=== PATIENT | male | born 1985 | race Caucasian/White ===

== ENCOUNTER 2018-05-30 09:22 | Inpatient (IN) | payer BC, SELFPAY ==
[2018-05-30] MEDS ORDERED: Propofol 1,000 MG/100 ML VIAL IV ONE (09:34)
[2018-05-30 09:38] LABS: #Basophils 0.1 thou/uL (0.0-0.2); #Eosinphils 0.1 thou/uL (0.0-0.7); #Lymphocytes 0.8 thou/uL (1.20-3.40); #Monocytes 0.3 thou/uL (0.11-0.59); #Neutrophils 5.3 thou/uL (1.40-6.50); %Basophils 0.9 % (0.0-1.0); %Eosinophils 0.9 % (0.0-10.0); %Lymphocytes 11.9 % (21.0-51.0); %Monocytes 5.3 % (0.0-10.0); Hemoglobin 14.5 g/dL (14.0-18.0); Mean Corpuscular HGB CONC 33.8 g/dL (32.0-36.0); Mean Corpuscular Hemoglobin 30.9 pg (27.0-31.0); Mean Corpuscular Volume 91.3 fL (78.0-98.0); Mean Platelet Volume 7.2 fL (7.4-10.4); Platelet Count 297 thou/uL (130-400); RBC Distribution Width 11.5 % (11.5-14.5); White Blood Cell (WBC) Count 6.6 thou/uL (4.8-10.8)
[2018-05-30] MEDS ORDERED: KETAMINE 100 MG/ML (5ML VIAL) ONE (09:46)
[2018-05-30 09:53] LABS: INR-International Normal Ratio 1.1; PTT 26.9 SEC (22.9-36.1); Prothrombin Time 13.8 SEC (12.0-14.7)
[2018-05-30] MEDS ORDERED: Ondansetron ODT 4 MG TAB PO PRN (09:53)
[2018-05-30] MEDS ORDERED: Ondansetron PF 4 MG/2 ML Vial IVP PRN (09:53)
[2018-05-30] MEDS ORDERED: Dextrose 50% Abboject 50 ML SYRINGE SLOW IVP PRN (09:53)
[2018-05-30] MEDS ORDERED: Dextrose 5% in Water 1,000 ML IV PRN (09:53)
[2018-05-30 09:56] LABS: Bilirubin Small (Negative); Blood, Urine Negative (Negative); Clarity CLOUDY (Clear); Glucose, Urine (Dipstick) Negative (Negative); Leukocyte Negative (Negative); Nitrite Negative (Negative); Protein, Urine (Dipstick) 30 mg/dL (Neg-Trace); Specific Gravity, Urine 1.026 (1.002-1.036)
[2018-05-30 09:58] LABS: Bacteria/HPF Rare-Few HPF (None Seen); RBC/HPF 0-3 HPF (0-3); Squamous Epithelial None Seen HPF (0-3); WBC/HPF 21-50 HPF (0-3)
[2018-05-30 09:59] LABS: Pathc Cast-AUWi Flag 2.61 (0-2.49); Sperm-AUWi Flag 831.2 (0-9.9)
[2018-05-30] MEDS ORDERED: Ventilator Sedation Protocol 1 EACH FS SCH (10:00)
[2018-05-30 10:03] LABS: Medtox Reader # READER 1
[2018-05-30 10:03] LABS: ALT (SGPT) 21 U/L (8-55); AST (SGOT) 30 U/L (5-34); Albumin 3.8 g/dL (3.5-5.0); Alkaline Phosphatase 49 U/L (40-150); Anion Gap 15 mmol/L (10-20); BUN (Urea Nitrogen) 10 mg/dL (8.9-20.6); Bilirubin, Total 1.3 mg/dL (0.2-1.2); Calc. Creatinine Clearance 0 mL/min (70-130); Calcium 8.9 mg/dL (7.8-10.44); Carbon Dioxide 23 mmol/L (22-29); Chloride 106 mmol/L (98-107); Estimated GFR-MDRD Greater than 90; Globulin 2.8 g/dL (2.4-3.5); Glucose 96 mg/dL (70-105); Lipase 5 U/L (8-78); Potassium 3.5 mmol/L (3.5-5.1); Protein, Total 6.6 g/dL (6.0-8.3); Sodium 140 mmol/L (136-145)
[2018-05-30 10:04] LABS: Amphetamine Detected (NotDetected); Barbiturates Screen Not Detected (NotDetected); Benzodiazepine Screen Detected (NotDetected); Cocaine Metabolite Screen Not Detected (NotDetected); Medtox Control Line Valid? VALID (VALID); Methadone Not Detected (NotDetected); Methamphetamine Detected (NotDetected); Opiate Screen Not Detected (NotDetected); Oxycodone Screen Not Detected (NotDetected); Phencyclidine (PCP) Not Detected (NotDetected); THC/Cannabinoid Screen Not Detected (NotDetected); Tricyclic Screen Not Detected (NotDetected)
[2018-05-30 10:09] LABS: Acetaminophen Less than 6.0 mcg/mL (10.0-30.0); Alcohol Less than 10 mg/dL (Less than 10); Salicylate Less than 8.0 mg/dL (15.0-30.0)
[2018-05-30 10:09] LABS: Hyaline Casts/LPF 0-3 HYALINE CAST LPF (0-3 Hyaline); Other Casts/LPF None Seen LPF (0-3 Hyaline); Sperm/HPF 4+ HPF (None Seen)
[2018-05-30 10:30] VITALS: BMI 20.9
[2018-05-30 11:00] LABS: Actual Bicarbonate (HCO3a) 24.4 mEq/L (22-28); Base Excess (BEa) -0.4 mEq/L (-2.0 to +3.0); CO2 Tension 40.7 mmHg (35.0-45.0); Calcium, Ionized 1.16 mmol/L (1.12-1.30); Carboxyhemoglobin (COHb) 1.6 gm% (0.0-3.0); Hemoglobin (Hb) 15.1 g/dL (14.0-18.0); O2 Tension (PaO2) 134.2 mmHg (80.0-100.0); Potassium - ABG Lab 3.61 mmol/L (3.70-5.30)
[2018-05-30] MEDS: Sodium Chloride 0.9% 1,000 ML IV SCH ×2 (11:00→17:56)
[2018-05-30 11:02] LABS: ALV-art Gradient 64.475 (0-20); Puncture Site RR
[2018-05-30] MEDS ORDERED: ISOVUE-370 76%-LOCM 1 ML ONE (11:10)
--- NOTE | 2018-05-30 11:25 | RAD ---
CHEST ONE VIEW: History: Chest injury following trauma. FINDINGS: Single AP supine chest demonstrates NG tube extending into the right lower lobe bronchus. Endotrachea l tube is in satisfactory location. Monitor leads overlie the chest. No evidence for pneumothorax or other acute intrathoracic disease. IMPRESSION: NG tube extending into the right lower lobe bronchus. Dr. Figueroa in the Emergency Department was con tacted at 9:45 a.m. and indicated that the NG tube had been removed. Endotracheal tube is satisfactor y location. No acute intrathoracic disease. Code CR POS: [facility]
--- NOTE | 2018-05-30 11:28 | CT ---
CT ANGIOGRAM NECK WITH 3D RENDERING: History: Neck injury following attempted hanging. FINDINGS: Visualized aortic arch and great vessels are unremarkable. Right and left vertebral arteries and righ t and left common, internal, and external carotid arteries appear unremarkable. No evidence for injur y or dissection. No evidence for contrast extravasation. No evidence for significant hematoma or othe r mass or abnormal fluid collection within the neck. Endotracheal tube in position. Minimal fluid in the nasopharynx. IMPRESSION: Unremarkable neck CT angiogram. Findings were discussed with Dr. Graham concerning the brain CT, cervical spine CT, and CT angio neck at 10:00 a.m. Code CR POS: [facility]
--- NOTE | 2018-05-30 11:28 | CT ---
NECK CT WITHOUT IV CONTRAST: HISTORY: Level I trauma, cervical injury following attempted hanging. FINDINGS: Endotracheal tube in position. Minimal fluid in the posterior nasal pharynx. No evidence for acute fracture or dislocation or significant malalignment. IMPRESSION: Unremarkable cervical spine CT. No fracture or dislocation. POS: [facility]
--- NOTE | 2018-05-30 11:29 | CT ---
BRAIN CT WITHOUT IV CONTRAST: Date: 05/30/18 HISTORY: Attempted hanging. FINDINGS: No focal mass or midline shift. No intra or extra-axial hemorrhage. There is some fluid in the retrop harynx. Endotracheal tube is seen in place. Minimal sinus mucosal changes. IMPRESSION: No acute intracranial process. No mass or bleed. Sinus mucosal changes. Fluid within the retropharynx . POS: [facility]
[2018-05-30] MEDS ORDERED: Propofol BOLUS 1,000 MG/100 ML VIAL IV PRN (12:11)
[2018-05-30] MEDS ORDERED: Fentanyl BOLUS 250 ML IVPB PRN (12:11)
[2018-05-30] MEDS ORDERED: DISCONTINUE PREVIOUS NARCOTIC PAIN MEDICATIONS AND BENZODIAZEPINES FS SCH (12:11)
[2018-05-30] MEDS ORDERED: fentaNYL Citrate/PF 2,000 MCG in Sodium Chloride 0.9% 60 ML IV SCH (12:11)
[2018-05-30] MEDS ORDERED: Morphine 2 MG/ML SYRINGE SLOW IVP PRN (12:11)
[2018-05-30] MEDS ORDERED: Lorazepam 2 MG/ML VIAL SLOW IVP PRN (12:11)
--- NOTE | 2018-05-30 12:14 | HP ---
HISTORY OF PRESENT ILLNESS: Mr. Farmer is a 33-year-old man, who is status post alleged attempted suicide by hanging on a tree. The patient was found hanging on a tree approximately 3 feet off the ground within 1 hour of him verbalizing suicidal ideation to family members. The patient was cut down from the tree and was found in agonal respiration. CPR was initiated by family member and 911 was activated. Responded EMS found the patient with pulse, spontaneously breathing, and profoundly agitated. The patient was given ketamine and placed on 100% non-rebreather mask. He was immobilized on a spine board. Cervical spine was immobilized in a C-collar. The patient was transported [facility] to [facility]. He arrived within 1 hour of the incident. Although his initial [place] Coma Scale was reported at 8, his [place] coma Scale upon arrival here was noted at E1, M3, and V1. The patient was electively intubated to protect airway and to facilitate timely workup. PAST MEDICAL HISTORY: Unknown. PAST SURGICAL HISTORY: Unknown. SOCIAL HISTORY: Unknown. CURRENT MEDICATIONS: Unknown. ALLERGIES: UNKNOWN. FAMILY HISTORY: Unknown. REVIEW OF SYSTEMS: Could not be obtained as the patient is in deep coma. PHYSICAL EXAMINATION: VITAL SIGNS: Initial vital signs include blood pressure 95/73, pulse 113, respiratory rate is 18, oxygen saturation 100% on 100% non-rebreather mask. HEENT: Reveals a 2 cm laceration in the occiput with underlying cephalohematoma, no active bleeding noted. Pupils are equally round and sluggishly reactive at 4 mm bilaterally. Midface is stable. No gross deformities or step-offs present. NECK: Supple. No palpable lymphadenopathy or thyromegaly present. Trachea is midline. The patient has no carotid bruit present. There is no hematoma of the neck present. There is no subcutaneous emphysema of the neck is present. Cervical spine was maintained in neutral position and remains in a C-collar. CHEST: Chest wall stable with no gross deformities or step-offs present. HEART: Reveals regular rate with sinus tachycardia. No murmurs or gallops auscultated. LUNGS: Clear to auscultation bilaterally. Breathing regular, nonlabored. ABDOMEN: Soft, nontender, and nondistended. Liver and spleen nonpalpable below costal margin. EXTREMITIES: Reveal 2+ radial and pedal pulses bilaterally. No ankle edema is present. NEUROLOGIC: Reveals no focal deficits present, although patient is in coma. PERTINENT LABORATORY FINDINGS: Include a CBC with 6600 white blood cells, hemoglobin 14.5, hematocrit 42.9, and platelet count 297,000. PTT and INR normal at 26.9 seconds and 1.1 respectively. Metabolic profile; sodium is 139, potassium is 3.6, chloride is 104, bicarb is 23, BUN is 10, creatinine is 0.86, glucose is 96, AST 30, ALT 21. Serum lipase is 5. Chest x-ray reveals no acute intrathoracic pathology. CT scan of the brain is unremarkable for any acute intracranial pathology. CT exam of the cervical spine reveals no fractures or dislocation present. CT angiography of the neck reveals no vascular injuries. IMPRESSION: 1. Status post alleged attempted suicide by hanging. 2. Status post hypoxic cardiac arrest. 3. Probable hypoxic encephalopathy. 4. Acute posttraumatic respiratory failure. PLAN: 1. Continue with ventilator support and wean vent as neurological and hemodynamic examination dictates. 2. Initiate physical and occupational therapy. 3. Initiate gastritis and VTE prophylaxis. Above findings and plan will be communicated to the family once they arrive. Total critical care time is 92 minutes. Job ID: [id number]
[2018-05-30 13:34] LABS: Lactic Acid 2.1 mmol/L (0.5-2.2)
[2018-05-30] MEDS: Propofol 1,000 MG/100 ML VIAL IV PRN (16:38)
[2018-05-31] MEDS: Propofol 1,000 MG/100 ML VIAL IV PRN ×2 (00:10→05:37)
[2018-05-31] MEDS: Sodium Chloride 0.9% 1,000 ML IV SCH (03:48)
[2018-05-31 07:46] LABS: #Basophils 0.1 thou/uL (0.0-0.2); #Lymphocytes 0.9 thou/uL (1.20-3.40); #Monocytes 0.7 thou/uL (0.11-0.59); #Neutrophils 10.6 thou/uL (1.40-6.50); %Basophils 0.5 % (0.0-1.0); %Eosinophils 0.1 % (0.0-10.0); %Lymphocytes 7.4 % (21.0-51.0); Hemoglobin 13.6 g/dL (14.0-18.0); Mean Corpuscular HGB CONC 33.9 g/dL (32.0-36.0); Mean Corpuscular Hemoglobin 30.8 pg (27.0-31.0); Mean Corpuscular Volume 90.8 fL (78.0-98.0); Mean Platelet Volume 7.7 fL (7.4-10.4); Platelet Count 253 thou/uL (130-400); RBC Distribution Width 11.5 % (11.5-14.5); Red Blood Cell (RBC) Count 4.43 mill/uL (4.70-6.10); White Blood Cell (WBC) Count 12.3 thou/uL (4.8-10.8)
[2018-05-31 08:02] LABS: Anion Gap 17 mmol/L (10-20); BUN (Urea Nitrogen) 8 mg/dL (8.9-20.6); Calc. Creatinine Clearance 112 mL/min (70-130); Calcium 8.4 mg/dL (7.8-10.44); Carbon Dioxide 25 mmol/L (22-29); Chloride 105 mmol/L (98-107); Estimated GFR-MDRD Greater than 90; Glucose 70 mg/dL (70-105); Potassium 3.3 mmol/L (3.5-5.1); Sodium 144 mmol/L (136-145)
[2018-05-31] MEDS ORDERED: Ibuprofen 800 MG TAB PO PRN (09:12)
[2018-05-31] MEDS ORDERED: Acetaminophen 500 MG TAB PO PRN (09:12)
[2018-05-31] MEDS ORDERED: Potassium Chloride 20 MEQ TAB PO SCH (09:30)
[2018-05-31] MEDS ORDERED: Acetaminophen 1,000 MG in Premix Bag 1 BAG IVPB SCH (09:45)
--- NOTE | 2018-05-31 09:46 | PRG ---
DATE OF SERVICE: 05/31/2018 SUBJECTIVE: Mr. Farmer is a 33-year-old man, post injury day #1, status post attempted suicide by hanging. The patient is on mechanical ventilator support, sedated. Off sedation, he moves all extremities and follows commands. Nigel Coma Scale 11T. OBJECTIVE: VITAL SIGNS: This morning include blood pressure 135/73, pulse 87, respiratory rate is 22, temperature is 100.2 degrees Fahrenheit, oxygen saturation 100% on FiO2 of 35%. HEENT: Pupils are equal, round, reactive to light bilaterally. HEART: Reveals regular rate and rhythm. No murmurs or gallops auscultated. LUNGS: Clear to auscultation bilaterally. Breathing regular, nonlabored. ABDOMEN: Soft, nontender, nondistended. EXTREMITIES: 2+ radial and pedal pulses bilaterally. Ankle edema is present. NEUROLOGIC: Reveals no focal deficits present. MUSCULOSKELETAL: Reveals 5/5 muscle strength in both upper and lower extremities bilaterally. He has no motor or sensory deficits identified. LABORATORY DATA: Pertinent laboratory findings today include CBC with 12,300 white blood cells, hemoglobin and hematocrit 13.6 and 40.2 respectively, platelet count is 253,000. Metabolic profile; sodium 144, potassium 3.3, chloride is 105, bicarb 25, BUN 8, creatinine 0.79, glucose 70. IMPRESSION: 1. Post injury day #1, status post attempted suicide by hanging. 2. Acute posttraumatic respiratory failure, improving. PLAN: 1. Mechanical ventilation and extubate the patient accordingly. 2. On post extubation, we will ask Psychiatry to evaluate the patient who is status post attempted suicide. The patient might need inpatient psychiatry admission. Otherwise, he remains hemodynamically stable. Job ID: [id number]
[2018-05-31] MEDS: Famotidine 20 MG TAB PO SCH (20:56)
[2018-06-01] MEDS: Famotidine 20 MG TAB PO SCH (08:20)
--- NOTE | 2018-06-01 08:51 | RAD ---
PORTABLE UPRIGHT FRONTAL CHEST RADIOGRAPH: DATE: 06/01/2018. COMPARISON: 05/30/2018. HISTORY: Reevaluate lung parenchyma. FINDINGS: Thee is no pneumothorax, pleural fluid, focal consolidation or alveolar edema. Heart and mediastinal contours unremarkable. No acute osseous abnormality. IMPRESSION: No acute findings. POS: [facility]
[2018-06-01] MEDS ORDERED: Enoxaparin Sodium 40 MG/0.4 ML SYRINGE SC SCH (09:00)
[2018-06-01 12:30] VITALS: BP 102/60; TEMP 98.2
--- NOTE | 2018-06-01 23:47 | DIS ---
DATE OF ADMISSION: 05/30/2018 DATE OF DISCHARGE: 06/01/2018 ADMISSION DIAGNOSES: 1. Attempted suicide by hanging. 2. Status post hypoxic cardiac arrest. 3. Probable hypoxic encephalopathy. 4. Acute posttraumatic respiratory failure. CONSULTATIONS: None. PROCEDURES: None. SUMMARY: The patient is a 33-year-old man who reportedly sent a suicide text to his girlfriend and then reportedly hung himself when arrived on scene, the patient was reportedly hanging from a tree, he was cut down and reportedly bystander CPR performed for unknown amount of time. EMS reports that they arrived shortly after the Police Department noted the patient was awake and conversant. The patient was brought to the emergency department, where he underwent evaluation and examination and due to his history of hanging and the concern for an airway compromise, the patient underwent rapid sequence intubation in the emergency department, was intubated, and placed on the ventilator overnight. The following morning, he would be extubated. Once he was awakened from his sedation, he was following commands without difficulty. He was interviewed by [facility], who recommended inpatient care as this was a true intent and not his first time. The patient will remain overnight in the hospital for observation for 24 hours after being extubated. Following day, he again was neurologically intact. He was tolerating a diet, had no pain. The patient was cleared for discharge to an inpatient psych facility. The patient will follow up as needed with [facility]. Job ID: [id number]
== END 2018-06-01 13:15 | disposition short-term general hospital (02) | DRG 913 ==
LOC: ERS 09:22 → CCU 09:53 → SJJU 05-31 12:37
PROVIDERS: ADMIT Surgery; ATTEND Surgery
PROC: 0BH17EZ Insertion of Endotracheal Airway into Trachea, Via Natural or Artificial Opening (ICD-10-PCS; principal; 2018-05-30)
PROC: 5A1935Z Respiratory Ventilation, Less than 24 Consecutive Hours (ICD-10-PCS; 2018-05-30)
DX: T14.91XA Suicide attempt, initial encounter (principal); I46.9 Cardiac arrest, cause unspecified; J96.01 Acute respiratory failure with hypoxia; G93.1 Anoxic brain damage, not elsewhere classified; X83.8XXA Intentional self-harm by other specified means, initial encounter
CPT/HCPCS: 31500; 36415; 51702; 70450; 70498; 71045; 72125; 80048; 80053; 80306; 80307; 81003; 81015; 82805; 83605; 83690; 85025; 85610; 85730; 86850; 86900; 86901; 94002; 94003; 94640; 94760; 96374; G0390; J0131; J2060; J2704; J7620

== ENCOUNTER 2021-10-26 03:34 | Emergency (ER) | payer BC | END 2021-10-26 03:46 | disposition home or self-care (01) | LOC: ERS 03:34 | DX: R53.83 Other fatigue (principal) | CPT/HCPCS: 36416; 99281 ==

== ENCOUNTER 2021-11-05 18:12 | Inpatient (IN) | payer OTHER, BC ==
[~2021-11-05 18:12] MED LIST: ISOVUE-370 76%-LOCM 1 ML ONE
[2021-11-05] MEDS ORDERED: Propofol 1,000 MG/100 ML VIAL IV ONE ×2 (18:30→19:27)
[2021-11-05 18:31] LABS: Hemoglobin 12.3 g/dL (14.0-18.0); Mean Corpuscular HGB CONC 32.9 g/dL (32.0-36.0); Mean Corpuscular Hemoglobin 32.2 pg (27.0-31.0); Mean Corpuscular Volume 97.6 fL (78.0-98.0); Mean Platelet Volume 7.2 fL (7.4-10.4); Platelet Count 248 thou/uL (130-400); RBC Distribution Width 11.6 % (11.5-14.5); Red Blood Cell (RBC) Count 3.82 mill/uL (4.70-6.10); White Blood Cell (WBC) Count 20.5 thou/uL (4.8-10.8)
[2021-11-05] MEDS ORDERED: Calcium Chloride 1 GM/10 ML Abboject SYRINGE ONE (18:32)
[2021-11-05 18:42] LABS: INR-International Normal Ratio 1.3; Prothrombin Time 15.9 sec (12.0-14.7)
[2021-11-05 18:43] LABS: PTT 33.6 sec (22.9-36.1)
[2021-11-05 18:51] LABS: ALT (SGPT) 71 U/L (8-55); AST (SGOT) 131 U/L (5-34); Albumin 3.1 g/dL (3.5-5.0); Alkaline Phosphatase 42 U/L (40-110); Anion Gap 14 mmol/L (10-20); BUN (Urea Nitrogen) 9 mg/dL (8.9-20.6); Bilirubin, Total 0.6 mg/dL (0.2-1.2); Calc. Creatinine Clearance 0 mL/min (70-130); Calcium 7.6 mg/dL (7.8-10.44); Carbon Dioxide 21 mmol/L (22-29); Chloride 108 mmol/L (98-107); Globulin 2.1 g/dL (2.4-3.5); Glucose 149 mg/dL (70-105); Protein, Total 5.2 g/dL (6.0-8.3); Sodium 140 mmol/L (136-145)
[2021-11-05 18:57] LABS: Phosphorus 3.3 mg/dL (2.3-4.7)
[2021-11-05 18:59] LABS: Magnesium 1.7 mg/dL (1.6-2.6)
[2021-11-05 19:00] LABS: Acetaminophen Less than 10.0 mcg/mL (10.0-30.0); Alcohol 148 mg/dL (Less than 10); Salicylate Less than 8.0 mg/dL (15.0-30.0)
[2021-11-05 19:04] LABS: Band 5 % (5-11); Eosinophils 1 % (0-10); Lymphocytes 12 % (21-51); MDiff Complete? YES; Monocytes 7 % (0-10); Neutrophil 69 % (42-75); Platelet Morphology Comment Appears Adequate; Polychromasia SLIGHT = 2-3 cells (100X) (0-2/hpf); Reactive Lymphocytes 6 % (0-10)
[2021-11-05] MEDS ORDERED: EPINEPHrine 1 MG/10 ML Abboject SYRINGE ONE (19:16)
[2021-11-05 19:25] LABS: Bacteria/HPF None Seen HPF (None Seen); Bilirubin Negative (Negative); Blood, Urine 3+ (Negative); Clarity Clear (Clear); Glucose, Urine (Dipstick) Normal (Negative); Ketone, Urine Negative (Negative); Leukocyte Negative Leu/uL (Negative); Nitrite Negative (Negative); Protein, Urine (Dipstick) 30 mg/dL (Neg-Trace); Specific Gravity, Urine 1.024 (1.002-1.036); Squamous Epithelial None Seen HPF (0-3); WBC/HPF 0-3 HPF (0-3)
[2021-11-05 19:30] LABS: Amphetamine Not Detected (NotDetected); Barbiturates Screen Not Detected (NotDetected); Benzodiazepine Screen Not Detected (NotDetected); Cocaine Metabolite Screen Not Detected (NotDetected); Methadone Not Detected (NotDetected); Methamphetamine Not Detected (NotDetected); Opiate Screen Not Detected (NotDetected); Oxycodone Screen Not Detected (NotDetected); Phencyclidine (PCP) Not Detected (NotDetected); THC/Cannabinoid Screen Not Detected (NotDetected); Tricyclic Screen Not Detected (NotDetected)
[2021-11-05 19:33] LABS: Sperm/HPF 1+ HPF (None Seen)
[2021-11-05] MEDS ORDERED: Morphine 10 MG/ML VIAL ONE (19:56)
[2021-11-05] MEDS ORDERED: Dextrose 5% in Water 1,000 ML IV PRN (20:40)
[2021-11-05] MEDS ORDERED: Ondansetron PF 4 MG/2 ML Vial IVP PRN (20:40)
[2021-11-05] MEDS ORDERED: Dextrose 50% Abboject 50 ML SYRINGE SLOW IVP PRN (20:40)
[2021-11-05] MEDS ORDERED: Ventilator Sedation Protocol 1 EACH FS SCH (20:44)
[2021-11-05] MEDS ORDERED: Propofol 1,000 MG/100 ML VIAL IV PRN (21:00)
[2021-11-05] MEDS ORDERED: Propofol BOLUS 1,000 MG/100 ML VIAL IV PRN (21:00)
[2021-11-05] MEDS ORDERED: DISCONTINUE PREVIOUS NARCOTIC PAIN MEDICATIONS AND BENZODIAZEPINES FS SCH (21:00)
[2021-11-05] MEDS ORDERED: Lorazepam 2 MG/ML VIAL SLOW IVP PRN (21:00)
[2021-11-05] MEDS ORDERED: Morphine 4 MG/ML VIAL SLOW IVP PRN (21:00)
[2021-11-05] MEDS ORDERED: Fentanyl BOLUS 250 ML IVPB PRN (21:00)
[2021-11-05 21:04] LABS: SARS-CoV-2 NAA Rapid Test Not Detected (NotDetected)
[2021-11-05] MEDS: NACL IVPB SCH (22:07)
[2021-11-05] MEDS: DEXMEDETOMIDINE IVPB SCH (22:07)
[2021-11-05] MEDS: Sodium Chloride 0.9% 1,000 ML IV SCH (22:13)
[2021-11-05] MEDS ORDERED: Sodium Chloride 0.9% 1,000 ML IV SCH (22:15)
[2021-11-05] MEDS: Famotidine/PF 20 mg/2ml Vial SLOW IVP SCH (22:25)
[2021-11-05] MEDS: Potassium Chloride 20 MEQ in Premix Bag 1 BAG IVPB SCH (22:25)
[2021-11-05] MEDS ORDERED: Magnesium 2 GM/50 ML(in water) 2 GM in Premix Bag 1 BAG IVPB SCH (22:30)
[2021-11-06] MEDS: Potassium Chloride 20 MEQ in Premix Bag 1 BAG IVPB SCH (00:45)
[2021-11-06] MEDS: fentaNYL Citrate-0.9 % NaCl/PF 100 ML IV SCH ×3 (01:34→20:21)
[2021-11-06 03:59] LABS: #Lymphocytes 0.7 thou/uL (1.20-3.40); #Monocytes 0.8 thou/uL (0.11-0.59); #Neutrophils 11.1 thou/uL (1.40-6.50); %Basophils 0.1 % (0.0-1.0); %Eosinophils 0.1 % (0.0-10.0); %Lymphocytes 5.7 % (21.0-51.0); %Monocytes 6.7 % (0.0-10.0); %Neutrophils 87.5 % (42.0-75.0); Mean Corpuscular HGB CONC 32.9 g/dL (32.0-36.0); Mean Corpuscular Hemoglobin 31.8 pg (27.0-31.0); Mean Corpuscular Volume 96.5 fL (78.0-98.0); Mean Platelet Volume 7.6 fL (7.4-10.4); Platelet Count 137 thou/uL (130-400); RBC Distribution Width 12.5 % (11.5-14.5); Red Blood Cell (RBC) Count 3.77 mill/uL (4.70-6.10); White Blood Cell (WBC) Count 12.7 thou/uL (4.8-10.8)
[2021-11-06 04:14] LABS: Lactic Acid 1.7 mmol/L (0.5-2.2)
[2021-11-06 04:19] LABS: CK (CPK) 2348 U/L (30-200); Phosphorus 2.5 mg/dL (2.3-4.7)
[2021-11-06 04:23] LABS: Anion Gap 10 mmol/L (10-20); BUN (Urea Nitrogen) 8 mg/dL (8.9-20.6); Calc. Creatinine Clearance 113 mL/min (70-130); Calcium 7.5 mg/dL (7.8-10.44); Carbon Dioxide 18 mmol/L (22-29); Chloride 113 mmol/L (98-107); Glucose 108 mg/dL (70-105); Magnesium 1.8 mg/dL (1.6-2.6); Potassium 4.8 mmol/L (3.5-5.1); Sodium 136 mmol/L (136-145)
[2021-11-06] MEDS ORDERED: Sodium Chloride 0.9% 1,000 ML IV SCH ×2 (04:45→07:00)
[2021-11-06] MEDS: DEXMEDETOMIDINE IVPB SCH (05:18)
[2021-11-06] MEDS: NACL IVPB SCH (05:18)
[2021-11-06] MEDS: Sodium Chloride 0.9% 1,000 ML IV SCH ×2 (05:42→16:41)
[2021-11-06] MEDS ORDERED: Midazolam In 0.9 % NaCl/PF 100 MG in Premix Bag 1 BAG IVPB SCH (06:15)
[2021-11-06] MEDS ORDERED: Midazolam HCl 2 mg/2 ml Vial ONE (06:15)
[2021-11-06] MEDS ORDERED: Midazolam HCl 2 mg/2 ml Vial SLOW IVP SCH (06:30)
[2021-11-06] MEDS ORDERED: Hydrocortisone Sod Succ/PF 100 mg/2 ml Vial IVP SCH ×2 (07:30→15:00)
[2021-11-06 07:44] LABS: Actual Bicarbonate (HCO3a) 21.1 mEq/L (22-28); Base Excess (BEa) -4.1 mEq/L (-2.0 to +3.0); CO2 Tension 39.2 mmHg (35.0-45.0); Calcium, Ionized (arterial) 1.07 mmol/L (1.12-1.30); Carboxyhemoglobin (COHb) 0.3 gm% (0.0-3.0); Hemoglobin (Hb) 10.3 g/dL (14.0-18.0); O2 Tension (PaO2), arterial 121.1 mmHg (80.0-100.0); Potassium - ABG Lab 4.27 mmol/L (3.70-5.30); pH, Arterial 7.35 (7.35-7.45)
[2021-11-06] MEDS ORDERED: Sodium Phosphate 15 MMOL in Sodium Chloride 0.9% 250 ML 250 ML IVPB SCH (07:45)
[2021-11-06] MEDS ORDERED: Magnesium 2 GM/50 ML(in water) 2 GM in Premix Bag 1 BAG IVPB SCH (07:45)
[2021-11-06 07:58] LABS: Puncture Site RBA
[2021-11-06] MEDS: Famotidine/PF 20 mg/2ml Vial SLOW IVP SCH ×2 (08:02→20:24)
[2021-11-06 08:32] LABS: Troponin I 0.594 ng/mL (< 0.028)
[2021-11-06] MEDS ORDERED: Calcium Chloride 13.6 MEQ in Sodium Chloride 0.9% 100 ML IVPB SCH (09:00)
[2021-11-06] MEDS: Acetaminophen 500 MG TAB PO SCH ×2 (11:48→17:25)
[2021-11-06] MEDS ORDERED: Midazolam In 0.9 % NaCl/PF 100 ML IVPB SCH (14:15)
[2021-11-06] MEDS: Hydrocortisone Sod Succ/PF 100 mg/2 ml Vial IVP SCH ×2 (14:25→20:24)
[2021-11-06 16:04] LABS: Troponin I 0.274 ng/mL (< 0.028)
[2021-11-07] MEDS: Acetaminophen 500 MG TAB PO SCH ×4 (00:03→12:06)
[2021-11-07] MEDS: Sodium Chloride 0.9% 1,000 ML IV SCH ×2 (01:27→16:43)
[2021-11-07] MEDS: Hydrocortisone Sod Succ/PF 100 mg/2 ml Vial IVP SCH ×4 (03:23→20:29)
[2021-11-07 05:48] LABS: Anion Gap 12 mmol/L (10-20); BUN (Urea Nitrogen) 12 mg/dL (8.9-20.6); CK (CPK) 3386 U/L (30-200); Calc. Creatinine Clearance 119 mL/min (70-130); Calcium 8.1 mg/dL (7.8-10.44); Carbon Dioxide 20 mmol/L (22-29); Chloride 110 mmol/L (98-107); Glucose 123 mg/dL (70-105); Magnesium 1.8 mg/dL (1.6-2.6); Phosphorus 2.1 mg/dL (2.3-4.7); Potassium 5.4 mmol/L (3.5-5.1); Sodium 137 mmol/L (136-145)
[2021-11-07] MEDS: fentaNYL Citrate-0.9 % NaCl/PF 100 ML IV SCH (05:51)
[2021-11-07 05:52] LABS: #Lymphocytes 1.1 thou/uL (1.20-3.40); #Monocytes 0.9 thou/uL (0.11-0.59); #Neutrophils 11.2 thou/uL (1.40-6.50); %Eosinophils 0.1 % (0.0-10.0); %Lymphocytes 8.6 % (21.0-51.0); %Monocytes 6.8 % (0.0-10.0); %Neutrophils 84.5 % (42.0-75.0); Hemoglobin 10.4 g/dL (14.0-18.0); Mean Corpuscular HGB CONC 32.8 g/dL (32.0-36.0); Mean Corpuscular Hemoglobin 32.1 pg (27.0-31.0); Mean Corpuscular Volume 97.9 fL (78.0-98.0); Mean Platelet Volume 8.3 fL (7.4-10.4); Platelet Count 112 thou/uL (130-400); Platelet Morphology Comment Appears Decreased; RBC Distribution Width 12.6 % (11.5-14.5); Red Blood Cell (RBC) Count 3.24 mill/uL (4.70-6.10); White Blood Cell (WBC) Count 13.3 thou/uL (4.8-10.8)
[2021-11-07 06:01] LABS: Troponin I 0.174 ng/mL (< 0.028)
[2021-11-07 07:39] LABS: Actual Bicarbonate (HCO3a) 26.9 mEq/L (22-28); CO2 Tension 43.5 mmHg (35.0-45.0); Calcium, Ionized (arterial) 1.16 mmol/L (1.12-1.30); Hemoglobin (Hb) 10.9 g/dL (14.0-18.0); O2 Tension (PaO2), arterial 60.6 mmHg (80.0-100.0); Potassium - ABG Lab 4.05 mmol/L (3.70-5.30); pH, Arterial 7.41 (7.35-7.45)
[2021-11-07 07:41] LABS: ALV-art Gradient 241.525 mmHg (0-20); Puncture Site RRA
[2021-11-07 07:57] LABS: Magnesium 1.9 mg/dL (1.6-2.6); Potassium 4.8 mmol/L (3.5-5.1)
[2021-11-07] MEDS ORDERED: Sodium Phosphate 30 MMOL in Sodium Chloride 0.9% 250 ML 250 ML IVPB SCH (08:00)
[2021-11-07] MEDS: Famotidine/PF 20 mg/2ml Vial SLOW IVP SCH ×2 (08:45→20:30)
[2021-11-07] MEDS: Enoxaparin Sodium 30 MG/0.3 ML SYRINGE SC SCH ×2 (08:45→20:29)
[2021-11-07] MEDS ORDERED: traMADol HCl 50 MG TAB PO PRN (09:10)
[2021-11-07] MEDS ORDERED: Ibuprofen 800 MG TAB PO SCH (09:15)
[2021-11-07] MEDS ORDERED: Ketorolac Tromethamine 30 MG/ML VIAL IVP SCH (09:15)
[2021-11-07] MEDS ORDERED: Gabapentin 100 MG CAP PO SCH (09:15)
[2021-11-07] MEDS: traMADol HCl 50 MG TAB PO SCH ×2 (12:00→12:07)
[2021-11-07] MEDS: Ketorolac Tromethamine 30 MG/ML VIAL IVP SCH ×3 (12:01→23:13)
[2021-11-07] MEDS ORDERED: Ibuprofen 600 MG TAB PO SCH (14:00)
[2021-11-07] MEDS: Gabapentin 300 MG CAP PO SCH ×2 (14:26→20:29)
[2021-11-07] MEDS ORDERED: Acetaminophen/Codeine 30-300mg Tablet PO PRN (16:57)
[2021-11-07] MEDS: Acetaminophen/Codeine 30-300mg Tablet PO SCH ×2 (17:33→23:15)
[2021-11-07] MEDS: Acetaminophen 325 MG TAB PO SCH ×2 (17:37→23:16)
[2021-11-07] MEDS: Senokot S 8.6-50 MG TAB PO SCH ×2 (20:29→20:33)
[2021-11-07] MEDS: Morphine 4 MG/ML VIAL SLOW IVP PRN (20:56)
[2021-11-07] MEDS: Bacitracin 1 PK TOP SCH (21:53)
[2021-11-08] MEDS: Hydrocortisone Sod Succ/PF 100 mg/2 ml Vial IVP SCH ×4 (03:41→21:39)
[2021-11-08 04:03] LABS: #Lymphocytes 1.6 thou/uL (1.20-3.40); #Monocytes 0.7 thou/uL (0.11-0.59); %Basophils 0.3 % (0.0-1.0); %Eosinophils 0.2 % (0.0-10.0); %Lymphocytes 12.1 % (21.0-51.0); %Monocytes 5.4 % (0.0-10.0); Hemoglobin 10.5 g/dL (14.0-18.0); Mean Corpuscular Hemoglobin 32.2 pg (27.0-31.0); Mean Corpuscular Volume 97.5 fL (78.0-98.0); Mean Platelet Volume 7.5 fL (7.4-10.4); Platelet Count 132 thou/uL (130-400); RBC Distribution Width 12.3 % (11.5-14.5); Red Blood Cell (RBC) Count 3.25 mill/uL (4.70-6.10); White Blood Cell (WBC) Count 13.4 thou/uL (4.8-10.8)
[2021-11-08] MEDS: Morphine 4 MG/ML VIAL SLOW IVP PRN ×2 (05:17→20:34)
[2021-11-08 05:28] LABS: Anion Gap 8 mmol/L (10-20); BUN (Urea Nitrogen) 11 mg/dL (8.9-20.6); Calc. Creatinine Clearance 124 mL/min (70-130); Carbon Dioxide 31 mmol/L (22-29); Chloride 106 mmol/L (98-107); Glucose 111 mg/dL (70-105); Magnesium 1.9 mg/dL (1.6-2.6); Phosphorus 2.8 mg/dL (2.3-4.7); Potassium 4.4 mmol/L (3.5-5.1); Sodium 141 mmol/L (136-145)
[2021-11-08] MEDS: Acetaminophen 325 MG TAB PO SCH ×3 (06:33→16:59)
[2021-11-08] MEDS: Acetaminophen/Codeine 30-300mg Tablet PO SCH ×3 (06:33→17:00)
[2021-11-08] MEDS: Ketorolac Tromethamine 30 MG/ML VIAL IVP SCH ×3 (06:34→16:59)
[2021-11-08] MEDS: Senokot S 8.6-50 MG TAB PO SCH ×2 (08:05→20:35)
[2021-11-08] MEDS: Gabapentin 300 MG CAP PO SCH ×3 (08:05→20:35)
[2021-11-08] MEDS: Polyethylene Glycol 3350 17 GM Packet PO SCH (08:05)
[2021-11-08] MEDS: Enoxaparin Sodium 30 MG/0.3 ML SYRINGE SC SCH ×2 (08:05→20:35)
[2021-11-08] MEDS: Famotidine/PF 20 mg/2ml Vial SLOW IVP SCH ×2 (08:14→20:34)
[2021-11-08] MEDS: Bacitracin 1 PK TOP SCH ×3 (09:59→20:36)
[2021-11-08] MEDS: cloNIDine 0.1 MG TAB PO SCH ×2 (11:42→16:59)
[2021-11-09] MEDS: Acetaminophen 325 MG TAB PO SCH ×2 (00:57→05:22)
[2021-11-09] MEDS: Ketorolac Tromethamine 30 MG/ML VIAL IVP SCH ×3 (00:58→12:00)
[2021-11-09] MEDS: Acetaminophen/Codeine 30-300mg Tablet PO SCH ×6 (00:58→23:50)
[2021-11-09] MEDS: cloNIDine 0.1 MG TAB PO SCH ×5 (02:04→23:44)
[2021-11-09] MEDS: Hydrocortisone Sod Succ/PF 100 mg/2 ml Vial IVP SCH ×2 (04:26→11:18)
[2021-11-09] MEDS: Enoxaparin Sodium 30 MG/0.3 ML SYRINGE SC SCH ×2 (08:45→20:27)
[2021-11-09] MEDS: Bacitracin 1 PK TOP SCH ×3 (08:45→20:28)
[2021-11-09] MEDS: Gabapentin 300 MG CAP PO SCH ×3 (08:45→20:26)
[2021-11-09] MEDS: Famotidine/PF 20 mg/2ml Vial SLOW IVP SCH ×2 (08:45→20:22)
[2021-11-09] MEDS: Polyethylene Glycol 3350 17 GM Packet PO SCH (08:45)
[2021-11-09] MEDS: Senokot S 8.6-50 MG TAB PO SCH ×2 (08:47→20:26)
[2021-11-09] MEDS: Morphine 4 MG/ML VIAL SLOW IVP PRN ×2 (09:58→20:19)
[2021-11-09] MEDS: Ibuprofen 200 MG TAB PO SCH ×2 (15:39→20:24)
[2021-11-10] MEDS: Morphine 4 MG/ML VIAL SLOW IVP PRN ×2 (01:48→11:51)
[2021-11-10] MEDS: Cyclobenzaprine 10 MG TAB PO PRN (03:07)
[2021-11-10] MEDS: Acetaminophen/Codeine 30-300mg Tablet PO SCH ×5 (04:14→21:25)
[2021-11-10 05:29] LABS: #Basophils 0.1 thou/uL (0.0-0.2); #Eosinphils 0.2 thou/uL (0.0-0.7); #Lymphocytes 2.5 thou/uL (1.20-3.40); #Monocytes 0.7 thou/uL (0.11-0.59); #Neutrophils 8.3 thou/uL (1.40-6.50); %Basophils 0.5 % (0.0-1.0); %Eosinophils 1.6 % (0.0-10.0); %Lymphocytes 20.9 % (21.0-51.0); %Monocytes 5.9 % (0.0-10.0); Hemoglobin 9.8 g/dL (14.0-18.0); Mean Corpuscular HGB CONC 32.3 g/dL (32.0-36.0); Mean Corpuscular Volume 99.1 fL (78.0-98.0); Mean Platelet Volume 7.8 fL (7.4-10.4); Platelet Count 181 thou/uL (130-400); RBC Distribution Width 12.5 % (11.5-14.5); Red Blood Cell (RBC) Count 3.05 mill/uL (4.70-6.10); White Blood Cell (WBC) Count 11.7 thou/uL (4.8-10.8)
[2021-11-10] MEDS: Ibuprofen 200 MG TAB PO SCH ×3 (06:18→21:25)
[2021-11-10] MEDS: cloNIDine 0.1 MG TAB PO SCH ×4 (06:18→23:08)
[2021-11-10] MEDS: Gabapentin 300 MG CAP PO SCH ×3 (10:46→21:30)
[2021-11-10] MEDS: Famotidine/PF 20 mg/2ml Vial SLOW IVP SCH ×2 (10:46→21:30)
[2021-11-10] MEDS: Bacitracin 1 PK TOP SCH ×3 (10:49→21:30)
[2021-11-10] MEDS: Senokot S 8.6-50 MG TAB PO SCH ×2 (10:49→21:29)
[2021-11-10] MEDS: Polyethylene Glycol 3350 17 GM Packet PO SCH (10:52)
[2021-11-10] MEDS: Enoxaparin Sodium 30 MG/0.3 ML SYRINGE SC SCH ×2 (10:52→21:30)
[2021-11-11] MEDS: Acetaminophen/Codeine 30-300mg Tablet PO SCH ×7 (00:49→23:46)
[2021-11-11] MEDS: cloNIDine 0.1 MG TAB PO SCH ×4 (05:02→23:47)
[2021-11-11] MEDS: Ibuprofen 200 MG TAB PO SCH ×3 (05:03→21:50)
[2021-11-11] MEDS: Polyethylene Glycol 3350 17 GM Packet PO SCH (08:11)
[2021-11-11] MEDS: Senokot S 8.6-50 MG TAB PO SCH ×2 (08:11→20:18)
[2021-11-11] MEDS: Bacitracin 1 PK TOP SCH ×3 (08:12→20:17)
[2021-11-11] MEDS: Gabapentin 300 MG CAP PO SCH ×3 (08:12→20:15)
[2021-11-11] MEDS: Famotidine/PF 20 mg/2ml Vial SLOW IVP SCH ×2 (08:12→20:17)
[2021-11-11] MEDS: Enoxaparin Sodium 30 MG/0.3 ML SYRINGE SC SCH ×2 (08:12→20:17)
[2021-11-11] MEDS: Morphine 4 MG/ML VIAL SLOW IVP PRN ×3 (09:38→20:29)
[2021-11-11] MEDS: Succinylcholine 200 MG/10 ml SYRINGE FS SCH ×2 (13:05→15:16)
[2021-11-11] MEDS: PROPOFOL 200 MG/20 ML VIAL IV SCH ×2 (13:06→15:15)
[2021-11-11] MEDS: Midazolam HCl 2 mg/2 ml Vial SLOW IVP SCH ×2 (13:10→15:15)
[2021-11-11] MEDS ORDERED: Midazolam HCl 2 mg/2 ml Vial ONE (13:29)
[2021-11-11] MEDS: Cyclobenzaprine 10 MG TAB PO PRN (21:51)
[2021-11-11] MEDS: hydrOXYzine 25 MG TAB PO SCH (23:47)
[2021-11-12] MEDS: Acetaminophen/Codeine 30-300mg Tablet PO SCH ×6 (03:55→23:48)
[2021-11-12] MEDS: cloNIDine 0.1 MG TAB PO SCH ×4 (05:23→23:49)
[2021-11-12] MEDS: Ibuprofen 200 MG TAB PO SCH ×3 (05:23→23:48)
[2021-11-12] MEDS: hydrOXYzine 25 MG TAB PO SCH ×4 (05:23→23:49)
[2021-11-12] MEDS: Enoxaparin Sodium 30 MG/0.3 ML SYRINGE SC SCH ×2 (10:13→19:54)
[2021-11-12] MEDS: Bacitracin 1 PK TOP SCH ×3 (10:13→19:51)
[2021-11-12] MEDS: Famotidine/PF 20 mg/2ml Vial SLOW IVP SCH ×2 (10:13→19:50)
[2021-11-12] MEDS: Gabapentin 300 MG CAP PO SCH ×3 (10:13→19:50)
[2021-11-12] MEDS: Senokot S 8.6-50 MG TAB PO SCH ×2 (10:14→19:51)
[2021-11-12] MEDS: Polyethylene Glycol 3350 17 GM Packet PO SCH (10:17)
[2021-11-12] MEDS: Morphine 4 MG/ML VIAL SLOW IVP PRN ×2 (12:40→17:27)
[2021-11-13] MEDS: Acetaminophen/Codeine 30-300mg Tablet PO SCH ×5 (03:49→20:07)
[2021-11-13] MEDS: Ibuprofen 200 MG TAB PO SCH ×2 (05:06→14:05)
[2021-11-13] MEDS: cloNIDine 0.1 MG TAB PO SCH ×3 (05:07→17:46)
[2021-11-13] MEDS: hydrOXYzine 25 MG TAB PO SCH ×3 (05:07→17:47)
[2021-11-13 06:06] LABS: #Eosinphils 0.5 thou/uL (0.0-0.7); #Lymphocytes 1.8 thou/uL (1.20-3.40); #Monocytes 0.8 thou/uL (0.11-0.59); #Neutrophils 6.1 thou/uL (1.40-6.50); %Basophils 0.5 % (0.0-1.0); %Eosinophils 4.9 % (0.0-10.0); %Lymphocytes 19.3 % (21.0-51.0); %Monocytes 8.8 % (0.0-10.0); %Neutrophils 66.4 % (42.0-75.0); Hemoglobin 11.4 g/dL (14.0-18.0); Mean Corpuscular HGB CONC 32.4 g/dL (32.0-36.0); Mean Corpuscular Hemoglobin 31.9 pg (27.0-31.0); Mean Corpuscular Volume 98.5 fL (78.0-98.0); Mean Platelet Volume 6.7 fL (7.4-10.4); Platelet Count 359 thou/uL (130-400); RBC Distribution Width 12.9 % (11.5-14.5); Red Blood Cell (RBC) Count 3.59 mill/uL (4.70-6.10); White Blood Cell (WBC) Count 9.2 thou/uL (4.8-10.8)
[2021-11-13 06:24] LABS: Anion Gap 12 mmol/L (10-20); BUN (Urea Nitrogen) 15 mg/dL (8.9-20.6); Calc. Creatinine Clearance 111 mL/min (70-130); Calcium 8.4 mg/dL (7.8-10.44); Carbon Dioxide 26 mmol/L (22-29); Chloride 105 mmol/L (98-107); Glucose 91 mg/dL (70-105); Phosphorus 4.5 mg/dL (2.3-4.7); Potassium 4.3 mmol/L (3.5-5.1); Sodium 139 mmol/L (136-145)
[2021-11-13] MEDS: Enoxaparin Sodium 30 MG/0.3 ML SYRINGE SC SCH ×2 (10:10→20:08)
[2021-11-13] MEDS: Senokot S 8.6-50 MG TAB PO SCH ×2 (10:10→20:09)
[2021-11-13] MEDS: Famotidine/PF 20 mg/2ml Vial SLOW IVP SCH ×2 (10:10→20:08)
[2021-11-13] MEDS: Polyethylene Glycol 3350 17 GM Packet PO SCH (10:10)
[2021-11-13] MEDS: Gabapentin 300 MG CAP PO SCH ×3 (10:10→20:08)
[2021-11-13] MEDS: Morphine 4 MG/ML VIAL SLOW IVP PRN ×2 (12:30→17:47)
[2021-11-13] MEDS: Bacitracin 1 PK TOP SCH ×3 (12:31→20:08)
[2021-11-14] MEDS: Acetaminophen/Codeine 30-300mg Tablet PO SCH ×7 (00:16→23:40)
[2021-11-14] MEDS: Ibuprofen 200 MG TAB PO SCH ×4 (00:16→20:33)
[2021-11-14] MEDS: cloNIDine 0.1 MG TAB PO SCH ×4 (00:16→17:20)
[2021-11-14] MEDS: hydrOXYzine 25 MG TAB PO SCH ×5 (00:17→23:41)
[2021-11-14] MEDS: Polyethylene Glycol 3350 17 GM Packet PO SCH (08:43)
[2021-11-14] MEDS: Senokot S 8.6-50 MG TAB PO SCH ×2 (08:43→20:33)
[2021-11-14] MEDS: Enoxaparin Sodium 30 MG/0.3 ML SYRINGE SC SCH ×2 (08:43→20:33)
[2021-11-14] MEDS: Famotidine/PF 20 mg/2ml Vial SLOW IVP SCH ×2 (08:44→20:33)
[2021-11-14] MEDS: Bacitracin 1 PK TOP SCH ×3 (08:44→20:33)
[2021-11-14] MEDS: Gabapentin 300 MG CAP PO SCH ×3 (08:44→20:32)
[2021-11-14 12:43] VITALS: BMI 18.8
[2021-11-15] MEDS: Acetaminophen/Codeine 30-300mg Tablet PO SCH ×5 (04:10→20:23)
[2021-11-15] MEDS: Ibuprofen 200 MG TAB PO SCH ×3 (05:17→20:28)
[2021-11-15] MEDS: cloNIDine 0.1 MG TAB PO SCH ×4 (05:18→17:45)
[2021-11-15] MEDS: hydrOXYzine 25 MG TAB PO SCH ×3 (05:18→17:45)
[2021-11-15] MEDS: Famotidine/PF 20 mg/2ml Vial SLOW IVP SCH ×2 (08:40→20:24)
[2021-11-15] MEDS: Gabapentin 300 MG CAP PO SCH ×3 (08:41→20:23)
[2021-11-15] MEDS: Bacitracin 1 PK TOP SCH ×3 (08:41→20:24)
[2021-11-15] MEDS: Enoxaparin Sodium 30 MG/0.3 ML SYRINGE SC SCH ×2 (08:41→20:24)
[2021-11-15] MEDS: Polyethylene Glycol 3350 17 GM Packet PO SCH (08:41)
[2021-11-15] MEDS: Senokot S 8.6-50 MG TAB PO SCH ×2 (08:41→20:24)
[2021-11-15] MEDS: Cyclobenzaprine 10 MG TAB PO PRN (17:52)
[2021-11-16] MEDS: cloNIDine 0.1 MG TAB PO SCH ×5 (00:14→23:37)
[2021-11-16] MEDS: Acetaminophen/Codeine 30-300mg Tablet PO SCH ×6 (00:14→22:03)
[2021-11-16] MEDS: hydrOXYzine 25 MG TAB PO SCH ×5 (00:15→23:37)
[2021-11-16] MEDS: Ibuprofen 200 MG TAB PO SCH ×3 (05:04→22:02)
[2021-11-16] MEDS: Gabapentin 300 MG CAP PO SCH ×3 (08:59→22:01)
[2021-11-16] MEDS: Polyethylene Glycol 3350 17 GM Packet PO SCH (09:00)
[2021-11-16] MEDS: Bacitracin 1 PK TOP SCH ×2 (09:00→16:30)
[2021-11-16] MEDS: Famotidine/PF 20 mg/2ml Vial SLOW IVP SCH ×2 (09:00→22:10)
[2021-11-16] MEDS: Senokot S 8.6-50 MG TAB PO SCH ×2 (09:00→22:04)
[2021-11-16] MEDS: Enoxaparin Sodium 30 MG/0.3 ML SYRINGE SC SCH ×2 (09:03→22:02)
[2021-11-17] MEDS: Acetaminophen/Codeine 30-300mg Tablet PO SCH ×4 (00:35→11:24)
[2021-11-17] MEDS: Ibuprofen 200 MG TAB PO SCH ×2 (05:50→15:37)
[2021-11-17] MEDS: hydrOXYzine 25 MG TAB PO SCH ×2 (05:50→11:25)
[2021-11-17] MEDS: cloNIDine 0.1 MG TAB PO SCH ×2 (05:50→11:25)
[2021-11-17] MEDS: Gabapentin 300 MG CAP PO SCH (08:46)
[2021-11-17] MEDS: Famotidine/PF 20 mg/2ml Vial SLOW IVP SCH (08:48)
[2021-11-17] MEDS: Senokot S 8.6-50 MG TAB PO SCH (08:48)
[2021-11-17] MEDS: Polyethylene Glycol 3350 17 GM Packet PO SCH (08:48)
[2021-11-17] MEDS: Enoxaparin Sodium 30 MG/0.3 ML SYRINGE SC SCH (08:48)
[2021-11-17 11:27] VITALS: BP 116/71; TEMP 98
== END 2021-11-17 15:59 | disposition home or self-care (01) | DRG 963 ==
LOC: ERS 18:12 → CCU 18:31 → SURG A 11-09 09:51
PROVIDERS: ADMIT Specialist; ATTEND Surgery
PROC: 0W9B30Z Drainage of Left Pleural Cavity with Drainage Device, Percutaneous Approach (ICD-10-PCS; principal; 2021-11-05)
PROC: 5A1945Z Respiratory Ventilation, 24-96 Consecutive Hours (ICD-10-PCS; 2021-11-05)
PROC: 0BH18EZ Insertion of Endotracheal Airway into Trachea, Via Natural or Artificial Opening Endoscopic (ICD-10-PCS; 2021-11-05)
PROC: 0D9670Z Drainage of Stomach with Drainage Device, Via Natural or Artificial Opening (ICD-10-PCS; 2021-11-05)
PROC: 30233N1 Transfusion of Nonautologous Red Blood Cells into Peripheral Vein, Percutaneous Approach (ICD-10-PCS; 2021-11-05)
PROC: 0HQHXZZ Repair Right Upper Leg Skin, External Approach (ICD-10-PCS; 2021-11-05)
PROC: 0BCB8ZZ Extirpation of Matter from Left Lower Lobe Bronchus, Via Natural or Artificial Opening Endoscopic (ICD-10-PCS; 2021-11-11)
DX: S27.2XXA Traumatic hemopneumothorax, initial encounter (principal); S32.402A Unspecified fracture of left acetabulum, initial encounter for closed fracture; J96.01 Acute respiratory failure with hypoxia; S82.402B Unspecified fracture of shaft of left fibula, initial encounter for open fracture type I or II; S22.038A Other fracture of third thoracic vertebra, initial encounter for closed fracture; S22.048A Other fracture of fourth thoracic vertebra, initial encounter for closed fracture; S22.058A Other fracture of T5-T6 vertebra, initial encounter for closed fracture; S32.502A Unspecified fracture of left pubis, initial encounter for closed fracture; S22.42XA Multiple fractures of ribs, left side, initial encounter for closed fracture; E87.2 Acidosis; D62 Acute posthemorrhagic anemia; J98.11 Atelectasis; T17.890A Other foreign object in other parts of respiratory tract causing asphyxiation, initial encounter; S09.90XA Unspecified injury of head, initial encounter; S40.212A Abrasion of left shoulder, initial encounter; S42.002A Fracture of unspecified part of left clavicle, initial encounter for closed fracture; S42.102A Fracture of unspecified part of scapula, left shoulder, initial encounter for closed fracture; F10.129 Alcohol abuse with intoxication, unspecified; E87.6 Hypokalemia; S82.401A Unspecified fracture of shaft of right fibula, initial encounter for closed fracture; E83.51 Hypocalcemia; E83.39 Other disorders of phosphorus metabolism; E83.42 Hypomagnesemia; T79.6XXA Traumatic ischemia of muscle, initial encounter; Z20.822 Contact with and (suspected) exposure to COVID-19; V89.2XXA Person injured in unspecified motor-vehicle accident, traffic, initial encounter; Y92.89 Other specified places as the place of occurrence of the external cause
CPT/HCPCS: 31500; 36415; 36430; 36600; 70450; 71045; 71260; 72125; 72170; 74177; 80048; 80053; 80306; 80307; 81003; 81015; 82533; 82550; 82805; 83605; 83735; 83880; 84100; 84484; 85025; 85610; 85730; 86850; 86900; 86901; 90471; 93005; 93010; 93306; 94002; 94003; 94640; 96365; 96366; 96375; 99292; G0390; J0171; J1650; J1720; J1885; J2250; J2270; J2704; J3475; J3480; J3490; J7050; J7620; P9016; P9045; Q9966; S0028; U0002; U0003; U0005

== ENCOUNTER 2021-11-23 16:25 | Outpatient (CLI) | payer BC | END 2021-11-23 16:26 | disposition home or self-care (01) | LOC: BICRAD 16:25 | PROVIDERS: ATTEND Surgery | DX: S22.42XA Multiple fractures of ribs, left side, initial encounter for closed fracture (principal); R91.8 Other nonspecific abnormal finding of lung field; J93.9 Pneumothorax, unspecified | CPT/HCPCS: 71046 ==